=== PATIENT | female | born 1990 | race American Indian/Alaskan Native ===

== ENCOUNTER 2018-07-06 13:33 | Emergency (ER) | payer SELFPAY ==
[2018-07-06 13:51] VITALS: BP 126/80
--- NOTE | 2018-07-06 15:02 | Emergency Department Report ---
ED General Adult HPI - General Chief complaint: Headache Stated complaint: BODY ACHE Time Seen by Provider: 07/06/18 14:57 Source: patient Mode of arrival: Ambulatory Limitations: Language Barrier - History of Present Illness Initial comments: 27 yo female with no past medical history presents to the hospital complaining of feeling sick yesterday. Patient states she was at work and did not have much to eat or drink yesterday. She developed a right-sided headache, nausea feeling, and generalized fatigue. Patient reports the symptoms are improved today. She did not have anything to eat today as of 3 PM. Patient currently denies nausea, vomiting, headache, chest pain, shortness of breath, throat pain , dull pain, dysuria, or fever. Patient states she is due for her menstrual cycle in the next couple days in her LMP was 06/07/2018. She states she typically has malaise and fatigue prior to menses. She does not think she is because she states she is a virgin. She is also inquiring about medications to help with acne. - Related Data Allergies Allergy/AdvReac Type Severity Reaction Status Date / Time No Known Allergies Allergy Verified 07/06/18 13:51 ED Review of Systems ROS: Stated complaint: BODY ACHE Other details as noted in HPI Comment: All other systems reviewed and negative ED Past Medical Hx - Past Medical History Previous Medical History?: No - Surgical History Past Surgical History?: No - Social History Smoking Status: Never Smoker Substance Use Type: None ED Physical Exam - General Limitations: Language Barrier - Other Other exam information: General: No limitations, patient is alert in no acute distress Head exam: Atraumatic, normocephalic Eyes exam: Normal appearance ENT: Moist mucous membrane Neck exam: Normal inspection, full range of motion, no meningismus nontender Respiratory exam: Clear to auscultation bilateral, no wheezes, rales, crackles Cardiovascular: Normal rate and rhythm, normal heart sounds Abdomen: Soft, nondistended, and nontender, with normal bowel sounds, no rebound, or guarding Extremity: Full range of motion normal inspection no deformity Back: Normal Inspection, full range of motion, no tenderness Neurologic: Alert, oriented x3, cranial nerves intact, no motor or sensory deficit Psychiatric: normal affect, normal mood Skin: Warm, dry, intact ED Course Vital Signs 07/06/18 13:48 Temperature 98.6 F Pulse Rate 99 H Respiratory 18 Rate Blood Pressure 126/80 O2 Sat by Pulse 100 Oximetry ED Medical Decision Making - Medical Decision Making Patient encouraged to drink plenty of fluids and to eat appropriately patient Patient is asymptomatic. Recommended her to research nonprescription acne treatment but she has interactive and exposed skin care Recommendations follow-up with a primary care doctor for her concerns and further evaluation - Differential Diagnosis viral syndrome, PMS, infection, Critical Care Time: No Critical care attestation.: If time is entered above; I have spent that time in minutes in the direct care of this critically ill patient, excluding procedure time. ED Disposition Clinical Impression: Nausea, Fatigue, Acne, PMS (premenstrual syndrome) Disposition: TO HOME OR SELFCARE Is pt being admited?: No Does the pt Need Aspirin: No Condition: Stable Instructions: Acute Nausea and Vomiting (ED), Premenstrual Syndrome (ED) Additional Instructions: Take [id number] Motrin or Tylenol for pain. You may research and try nonprescription acne treatment medication. Examples include exposed skin care and proactive. Eat and drink appropriately. Follow-up with a primary care doctor for further treatment. Referrals: [facility] [Provider Group] - 3-5 Days (Primary care clinic) WADE NEVES MD [Staff Physician] - 3-5 Days (Primary care doctor) Time of Disposition: 15:06
== END 2018-07-06 15:14 | disposition home or self-care (01) ==
LOC: ED 13:33
DX: N94.3 Premenstrual tension syndrome (principal); L70.9 Acne, unspecified
CPT/HCPCS: 99282